=== PATIENT | female | born 1990 | race Caucasian/White ===

== ENCOUNTER 2018-01-23 17:04 | Emergency (ER) | payer MEDICAID ==
--- NOTE | 2018-01-23 18:16 | EDM.PDOC ---
ED HPI GENERAL MEDICAL PROBLEM - General Chief Complaint: Cardiovascular Problem Stated Complaint: NOT FEELING WELL, LOW BLOOD PRESURE Time Seen by Provider: 01/23/18 17:46 Source of Information: Reports: Patient History Limitations: Reports: No Limitations - History of Present Illness INITIAL COMMENTS - FREE TEXT/NARRATIVE: 27 yo female presents following dizziness and hypotensive incident. Vomiting and diarrhea yesterday, she is feeling much better today. She was in [employer] and became light headed, she measured her blood pressure at the store and it was 90s/70s per pt. She ate a cookie in the lobby and is feeling much better now. 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 Denies: Fever, Chills Respiratory: Denies: Shortness of Breath, Wheezing Cardiovascular: Reports: Lightheadedness. Denies: Chest Pain GI/Abdominal: Denies: Abdominal Pain Skin: Denies: Rash ED EXAM, GENERAL - Physical Exam Exam: See Below Exam Limited By: No Limitations General Appearance: Alert, WD/WN, No Apparent Distress Head: Atraumatic, Normocephalic Respiratory/Chest: No Respiratory Distress, Lungs Clear, Normal Breath Sounds. No: Crackles, Rhonchi, Wheezing Cardiovascular: Regular Rate, Rhythm, No Murmur GI/Abdominal: Soft, Non-Tender Neurological: Alert, Oriented, CN II-XII Intact, Normal Cognition, Normal Gait Psychiatric: Normal Affect, Normal Mood Skin Exam: Warm, Dry, Intact Course - Vital Signs Last Recorded V/S: Last Vital Signs Temp 36.6 C 01/23/18 17:45 Pulse 84 01/23/18 17:45 Resp 18 01/23/18 17:45 BP 140/77 01/23/18 17:45 Pulse Ox 98 01/23/18 17:45 - Orders/Labs/Meds Labs: Laboratory Tests 01/23/18 01/23/18 Range/Units 18:18 18:18 WBC 7.4 (4.5-11.0) K/uL RBC 4.38 (3.30-5.50) M/uL Hgb 11.9 L (12.0-15.0) g/dL Hct 36.7 (36.0-48.0) % MCV 84 (80-98) fL MCH 27 (27-31) pg MCHC 32 (32-36) % Plt Count 333 (150-400) K/uL Neut % (Auto) 61 (36-66) % Lymph % (Auto) 26 (24-44) % [place] % (Auto) 10 H (2-6) % Eos % (Auto) 3 (2-4) % Baso % (Auto) 0 (0-1) % Sodium 142 (140-148) mmol/L Potassium 3.4 L (3.6-5.2) mmol/L Chloride 104 (100-108) mmol/L Carbon Dioxide 27 (21-32) mmol/L Anion Gap 14.4 H (5.0-14.0) mmol/L BUN 9 (7-18) mg/dL Creatinine 0.9 (0.6-1.0) mg/dL Est Cr Clr Drug Dosing 86.34 mL/min Estimated GFR (MDRD) > 60 (>60) Glucose 91 (74-106) mg/dL Calcium 8.1 L (8.5-10.1) mg/dL - Re-Assessments/Exams Free Text/Narrative Re-Assessment/Exam: 01/23/18 18:46 oral rehydrated. symptoms resolved. encouraged fluid intake and potassium rich foods Departure - Departure Time of Disposition: 18:47 Disposition: Home, Self-Care 01 Condition: Good Clinical Impression: Dehydration, Hypokalemia Instructions: Dehydration, Adult Referrals: PCP,None [Primary Care Provider] - Forms: ED Department Discharge Additional Instructions: fluid intake with goal of 1.5-2 liters per day eat potassium rich foods
== END 2018-01-23 19:05 | disposition home or self-care (01) ==
LOC: JP.ED 17:04
DX: E87.6 Hypokalemia (principal); E86.0 Dehydration; Z79.82 Long term (current) use of aspirin
CPT/HCPCS: 36415; 80048; 85025; 99284

== ENCOUNTER 2018-04-27 19:34 | Emergency (ER) | payer MEDICAID ==
--- NOTE | 2018-04-27 20:37 | EDM.PDOC ---
ED HPI GENERAL MEDICAL PROBLEM - General Chief Complaint: Abdominal Pain Time Seen by Provider: 04/27/18 19:55 Source of Information: Reports: Patient, Family (Mother) History Limitations: Reports: No Limitations - History of Present Illness INITIAL COMMENTS - FREE TEXT/NARRATIVE: left upper abdomen, lower left rib pain; this is a 27 year old female present to ER with Mom, reports abdominal pain all day. The pain is on the left upper abdomen, just below the ribs. increased pain with breathing denies any lifting or injuries. Concerns of , last menses 03/24/2018. AB1, had a recent positive test. recently moved to [place] from [place], [place]. works at [employer]. Onset: Today Duration: Hour(s):, Constant Location: Reports: Chest (left lower chest), Abdomen (left upper abdomen) Quality: Reports: Ache, Sharp Improves with: Reports: None Worsens with: Reports: Breathing Associated Symptoms: Reports: No Other Symptoms left abd Pain Score (Numeric/FACES): 7 - Related Data Allergies Allergy/AdvReac Type Severity Reaction Status Date / Time No Known Allergies Allergy Verified 04/27/18 19:58 Home Meds: Home Meds Aspirin 81 mg PO DAILY 01/23/18 [History] Past Medical History - Past Health History Medical/Surgical History: Denies Medical/Surgical History HEENT History: Reports: Allergic Rhinitis, Impaired Vision Cardiovascular History: Reports: Hypertension Respiratory History: Reports: Asthma, Sleep Apnea Gastrointestinal History: Reports: GERD, Other (See Below) Other Gastrointestinal History: 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 Genitourinary History: Reports: UTI, Recurrent 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: Neurological History: Reports: CVA, Other (See Below) Other Neuro History: stroke 2016 Psychiatric History: Reports: Anxiety, Depression, Psych Hospitalization(s), Suicide Attempt, Other (See Below) Other Psychiatric History: borderline personality disorder Endocrine/Metabolic History: Reports: Obesity/BMI 30+ Hematologic History: Reports: Anticoagulation Therapy Dermatologic History: Reports: Eczema, Psoriasis - Infectious Disease History Infectious Disease History: Reports: Chicken Pox, Pertussis (Whooping Cough) Social & Family History - Tobacco Use Smoking Status *Q: Never Smoker - Caffeine Use Caffeine Use: Reports: None - Recreational Drug Use Recreational Drug Use: No - Living Situation & Occupation Living situation: Reports: Single (has 3 children age 10 yr, 9 yr, and 2 yr. The two older children live with thier Paternal Grandparents. 2 yr lives with Lissette.), with Family Occupation: Employed ED ROS GENERAL - Review of Systems Review Of Systems: See Below Constitutional: Reports: Other (pain) HEENT: Reports: No Symptoms Respiratory: Reports: Pleuritic Chest Pain Cardiovascular: Reports: No Symptoms Endocrine: Reports: No Symptoms GI/Abdominal: Reports: Abdominal Pain (left upper doesnot radiate to other quadrants.) : Reports: Frequency, Other (last menses 03/24/18) Musculoskeletal: Reports: Muscle Pain (left lower ribs) Skin: Reports: No Symptoms Neurological: Reports: No Symptoms Psychiatric: Reports: No Symptoms Hematologic/Lymphatic: Reports: No Symptoms Immunologic: Reports: No Symptoms ED EXAM, GENERAL - Physical Exam Exam: See Below Exam Limited By: No Limitations General Appearance: Alert, WD/WN, No Apparent Distress Eye Exam: Bilateral Eye: Normal Inspection Ears: Normal External Exam, Normal Canal, Hearing Grossly Normal, Normal TMs Ear Exam: Bilateral Ear: Auricle Normal, Canal Normal, TM normal Nose: Normal Inspection, Normal Mucosa, No Blood Throat/Mouth: Normal Inspection, Normal Lips, Normal Teeth, Normal Gums, Normal Oropharynx, Normal Voice, No Airway Compromise Head: Atraumatic, Normocephalic Neck: Normal Inspection, Supple, Non-Tender, Full Range of Motion Respiratory/Chest: No Respiratory Distress, Lungs Clear, Normal Breath Sounds, No Accessory Muscle Use, Other (pain with palpation of the left lower ribs. ) Cardiovascular: Normal Peripheral Pulses, Regular Rate, Rhythm, No Edema, No Murmur Peripheral Pulses: 2+: Radial (L), Radial (R), Dorsalis Pedis (L), Dorsalis Pedis (R) GI/Abdominal: Normal Bowel Sounds, Soft, Other (mild tenderness to left upper abdomen.) (Female) Exam: Deferred Rectal (Female) Exam: Deferred Back Exam: Normal Inspection, Full Range of Motion Extremities: Normal Inspection, Normal Range of Motion, Non-Tender, No Pedal Edema, Normal Capillary Refill Neurological: No Motor/Sensory Deficits Psychiatric: Normal Affect, Normal Mood Skin Exam: Warm, Dry, Intact, Normal Color, No Rash Lymphatic: No Adenopathy Course - Vital Signs Last Recorded V/S: Last Vital Signs Temp 36.6 C 04/27/18 20:01 Pulse 83 04/27/18 20:01 Resp 16 04/27/18 20:01 BP 143/68 H 04/27/18 20:01 Pulse Ox 97 04/27/18 20:01 - Orders/Labs/Meds Orders: Active Orders 24 hr Category Date Time Status HCG QUALITATIVE,URINE [URCHEM] Stat Lab 04/27/18 20:39 Ordered UA W/MICROSCOPIC [URIN] Urgent Lab 04/27/18 20:39 Ordered Labs: Laboratory Tests 04/27/18 04/27/18 04/27/18 Range/Units 20:39 20:39 20:44 WBC (4.5-11.0) K/uL RBC (3.30-5.50) M/uL Hgb (12.0-15.0) g/dL Hct (36.0-48.0) % MCV (80-98) fL MCH (27-31) pg MCHC (32-36) % Plt Count (150-400) K/uL Neut % (Auto) (36-66) % Lymph % (Auto) (24-44) % [place] % (Auto) (2-6) % Eos % (Auto) (2-4) % Baso % (Auto) (0-1) % Sodium (140-148) mmol/L Potassium (3.6-5.2) mmol/L Chloride (100-108) mmol/L Carbon Dioxide (21-32) mmol/L Anion Gap (5.0-14.0) mmol/L BUN (7-18) mg/dL Creatinine (0.6-1.0) mg/dL Est Cr Clr Drug Dosing mL/min Estimated GFR (MDRD) (>60) Glucose (74-106) mg/dL Calcium (8.5-10.1) mg/dL Total Bilirubin (0.2-1.0) mg/dL AST (15-37) U/L ALT (12-78) U/L Alkaline Phosphatase (46-116) U/L Total Protein (6.4-8.2) g/dL Albumin (3.4-5.0) g/dL Globulin (2.3-3.5) g/dL Albumin/Globulin Ratio (1.2-2.2) HCG, Quant 2543 H (0-6) mIU/mL Urine Color Yellow Urine Appearance Cloudy Urine pH 7.0 (4.5-8.0) Ur Specific [place] 1.010 (1.008-1.030) Urine Protein Negative (NEGATIVE) mg/dL Urine Glucose (UA) Normal (NEGATIVE) mg/dL Urine Ketones Negative (NEGATIVE) mg/dL Urine Occult Blood Negative (NEGATIVE) Urine Nitrite Negative (NEGATIVE) Urine Bilirubin Negative (NEGATIVE) Urine Urobilinogen Normal (NORMAL) mg/dL Ur Leukocyte Esterase Negative (NEGATIVE) Urine RBC 0-5 (0-5) Urine WBC 5-10 H (0-5) Ur Epithelial Cells Moderate Amorphous Sediment Few Urine Bacteria Rare Urine Mucus Few Urine HCG, Qual Positive H 04/27/18 04/27/18 Range/Units 20:44 20:44 WBC 9.7 (4.5-11.0) K/uL RBC 4.41 (3.30-5.50) M/uL Hgb 12.3 (12.0-15.0) g/dL Hct 37.5 (36.0-48.0) % MCV 85 (80-98) fL MCH 28 (27-31) pg MCHC 33 (32-36) % Plt Count 333 (150-400) K/uL Neut % (Auto) 70 H (36-66) % Lymph % (Auto) 21 L (24-44) % [place] % (Auto) 6 (2-6) % Eos % (Auto) 3 (2-4) % Baso % (Auto) 0 (0-1) % Sodium 137 L (140-148) mmol/L Potassium 3.6 (3.6-5.2) mmol/L Chloride 102 (100-108) mmol/L Carbon Dioxide 27 (21-32) mmol/L Anion Gap 11.6 (5.0-14.0) mmol/L BUN 14 D (7-18) mg/dL Creatinine 0.8 (0.6-1.0) mg/dL Est Cr Clr Drug Dosing 97.13 mL/min Estimated GFR (MDRD) > 60 (>60) Glucose 87 (74-106) mg/dL Calcium 8.6 (8.5-10.1) mg/dL Total Bilirubin 0.2 (0.2-1.0) mg/dL AST 20 (15-37) U/L ALT 55 (12-78) U/L Alkaline Phosphatase 81 (46-116) U/L Total Protein 7.1 (6.4-8.2) g/dL Albumin 3.2 L (3.4-5.0) g/dL Globulin 3.9 H (2.3-3.5) g/dL Albumin/Globulin Ratio 0.8 L (1.2-2.2) HCG, Quant (0-6) mIU/mL Urine Color Urine Appearance Urine pH (4.5-8.0) Ur Specific [place] (1.008-1.030) Urine Protein (NEGATIVE) mg/dL Urine Glucose (UA) (NEGATIVE) mg/dL Urine Ketones (NEGATIVE) mg/dL Urine Occult Blood (NEGATIVE) Urine Nitrite (NEGATIVE) Urine Bilirubin (NEGATIVE) Urine Urobilinogen (NORMAL) mg/dL Ur Leukocyte Esterase (NEGATIVE) Urine RBC (0-5) Urine WBC (0-5) Ur Epithelial Cells Amorphous Sediment Urine Bacteria Urine Mucus Urine HCG, Qual - Re-Assessments/Exams Free Text/Narrative Re-Assessment/Exam: 04/27/18 20:46 -discussed with Lissette symptoms of left lower rib and upper abdomen pain most likely related to pleurisy. -will do labs to rule out bacterial infection, , or diabetes Lissette and her Mother agree with plan of care. 04/27/18 21:48 labs negative for acute process, positive test. discussed with Lissette and her Mom. advise to establish care. Departure - Departure Time of Disposition: 21:49 Disposition: Home, Self-Care 01 Condition: Good Clinical Impression: Pleurisy, confirmed by positive blood test - Discharge Information *PRESCRIPTION DRUG MONITORING PROGRAM REVIEWED*: No *COPY OF PRESCRIPTION DRUG MONITORING REPORT IN PATIENT AMELIA: No Instructions: Care, Pleurisy, [id number] Referrals: PCP,None [Primary Care Provider] - Forms: ED Department Discharge Care Plan Goals: Pleurisy -Robitussin AC 5 ml every 4 hours as needed for pain -may use tylenol every 4 hours as needed for pain Follow up with Primary Care for recheck in 2 weeks. return to Clinic or ER if has increased pain, shortness of breath or has concerns. , confirmed by blood and urine test -make appointment for Care -eat healthy, rest, drink 8 to 10 glasses of water per day -return to ER for any vaginal bleeding, cramping, pain, fever or any concerns. - Problem List & Annotations (1) Pleurisy SNOMED Code(s): 597185406 Code(s): R09.1 - PLEURISY Status: Acute Priority: High Current Visit: Yes (2) confirmed by positive blood test SNOMED Code(s): 150886072 Code(s): Z32.01 - ENCOUNTER FOR TEST, RESULT POSITIVE Status: Acute Priority: High Current Visit: Yes - Problem List Review Problem List Initiated/Reviewed/Updated: Yes - My Orders Last 24 Hours: My Active Orders 04/27/18 20:39 HCG QUALITATIVE,URINE [URCHEM] Stat UA W/MICROSCOPIC [URIN] Urgent - Assessment/Plan Last 24 Hours: My Active Orders 04/27/18 20:39 HCG QUALITATIVE,URINE [URCHEM] Stat UA W/MICROSCOPIC [URIN] Urgent Plan: Pleurisy -Robitussin AC 5 ml every 4 hours as needed for pain -may use tylenol every 4 hours as needed for pain Follow up with Primary Care for recheck in 2 weeks. return to Clinic or ER if has increased pain, shortness of breath or has concerns. , confirmed by blood and urine test -make appointment for Care -eat healthy, rest, drink 8 to 10 glasses of water per day -return to ER for any vaginal bleeding, cramping, pain, fever or any concerns.
== END 2018-04-27 22:06 | disposition home or self-care (01) ==
LOC: JP.ED 19:34
DX: O99.89 Other specified diseases and conditions complicating pregnancy, childbirth and the puerperium (principal); R09.1 Pleurisy; Z79.82 Long term (current) use of aspirin; Z3A.01 Less than 8 weeks gestation of pregnancy
CPT/HCPCS: 36415; 80053; 81001; 81025; 84702; 85025; 99284

== ENCOUNTER 2018-12-20 06:41 | Inpatient (IN) | payer MEDICAID ==
[2018-12-20] MEDS ORDERED: Lactated Ringers 1,000 ML IV ONE (07:28)
[2018-12-20] MEDS ORDERED: Sodium Chloride 0.9% 10 ML Syringe FLUSH PRN (07:33)
[2018-12-20] MEDS ORDERED: Acetaminophen 325 MG Tab PO PRN (07:33)
[2018-12-20] MEDS ORDERED: Ondansetron 4 MG/2 ML SDV IV PRN (07:33)
--- NOTE | 2018-12-20 07:55 | PCM.LDHP ---
L&D History of Present Illness - General Date of Service: 12/20/18 Admit Problem/Dx: Patient Status Order with Admit Dx/Problem 12/20/18 07:28 Patient Status [ADT] Routine Admission Diagnosis/Problem Admission Diagnosis/Problem - Related Data Allergies/Adverse Reactions: Allergies Allergy/AdvReac Type Severity Reaction Status Date / Time No Known Allergies Allergy Verified 12/13/18 21:34 Home Medications: Home Meds Aspirin 81 mg PO DAILY 01/23/18 [History] Past Medical History - Past Health History Medical/Surgical History: Denies Medical/Surgical History HEENT History: Reports: Allergic Rhinitis, Impaired Vision Cardiovascular History: Reports: Hypertension Respiratory History: Reports: Asthma, Sleep Apnea Gastrointestinal History: Reports: GERD, Other (See Below) Other Gastrointestinal History: 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: Neurological History: Reports: CVA, Other (See Below) Other Neuro History: stroke 2016 Psychiatric History: Reports: Anxiety, Depression, Psych Hospitalization(s), Suicide Attempt, Other (See Below) Other Psychiatric History: borderline personality disorder Endocrine/Metabolic History: Reports: Obesity/BMI 30+ Hematologic History: Reports: Anticoagulation Therapy Dermatologic History: Reports: Eczema, Psoriasis - Infectious Disease History Infectious Disease History: Reports: Chicken Pox, Hepatitis C Social & Family History - Caffeine Use Caffeine Use: Reports: Soda Other Caffeine Use: not very frequently - Living Situation & Occupation Living situation: Reports: Single (has 3 children age 10 yr, 9 yr, and 2 yr. The two older children live with araceli Paternal Grandparents. 2 yr lives with [employer]), with Family Occupation: Employed [employer] Review of Systems - Review of Systems: Review Of Systems: See Below General: Reports: No Symptoms HEENT: Reports: No Symptoms Pulmonary: Reports: No Symptoms Cardiovascular: Reports: No Symptoms Gastrointestinal: Reports: No Symptoms Genitourinary: Reports: No Symptoms Musculoskeletal: Reports: No Symptoms Skin: Reports: No Symptoms Psychiatric: Reports: No Symptoms Neurological: Reports: No Symptoms Hematologic/Lymphatic: Reports: No Symptoms Immunologic: Reports: No Symptoms L&D Exam - Exam Exam: See Below - Vital Signs Weight: 120.656 kg - OB Specific Contraction Intensity: Mild Movement: Active Heart Tones: Present Heart Rate (FHR) Variability: Moderate (6-25 bmp) Presentation: Vertex - Kent Score Kent Score Cervix Position: Anterior Kent Score Consistency: Soft [place] Score Effacement: 31-50% Kent Score Dilation: 3-4 cm Kent Score Infant's Station: -2 Kent Score Total: 8 - Exam General: Alert, Oriented, Cooperative HEENT: PERRLA, Conjunctiva Clear, EACs Clear, EOMI, Hearing Intact, Mucosa Moist & [place], Nares Patent, Normal Nasal Septum, Posterior Pharynx Clear, Pupils Equal, Pupils Reactive, TMs Clear Neck: Supple, Trachea Midline Lungs: Clear to Auscultation, Normal Respiratory Effort Cardiovascular: Regular Rate, Regular Rhythm GI/Abdominal Exam: Normal Bowel Sounds, Soft, Non-Tender, No Organomegaly, No Distention, No Abnormal Bruit, No Mass, Pelvis Stable Rectal Exam: Normal Exam, Normal Rectal Tone Genitourinary: Normal external exam, Normal bimanual exam, Normal speculum exam Back Exam: Normal Inspection, Full Range of Motion Extremities: Normal Inspection, Normal Range of Motion, Non-Tender, No Pedal Edema, Normal Capillary Refill Skin: Warm, Dry, Intact Neurological: Cranial Nerves Intact, Reflexes Equal Bilateral Psychiatric: Alert, Normal Affect, Normal Mood - Patient Data Lab Results Last 24 hrs: Laboratory Results - last 24 hr 12/20/18 Range/Units 07:09 WBC 9.9 (4.5-11.0) K/uL RBC 3.77 (3.30-5.50) M/uL Hgb 9.6 L (12.0-15.0) g/dL Hct 31.0 L (36.0-48.0) % MCV 82 (80-98) fL MCH 26 L (27-31) pg MCHC 31 L (32-36) % Plt Count 393 (150-400) K/uL Result Diagrams: 12/20/18 07:09 - Problem List (1) Encounter for induction of labor SNOMED Code(s): 559603640 ICD Code: Z34.90 - ENCNTR FOR SUPRVSN OF NORMAL , UNSP, UNSP TRIMESTER Status: Acute Current Visit: Yes (2) High-risk in third trimester SNOMED Code(s): 74460730, 58293852 ICD Code: O09.93 - SUPERVISION OF HIGH RISK , UNSP, THIRD TRIMESTER Status: Acute Priority: High Current Visit: Yes (3) SNOMED Code(s): 98394791 ICD Code: Z34.90 - ENCNTR FOR SUPRVSN OF NORMAL , UNSP, UNSP TRIMESTER Status: Acute Priority: High Current Visit: Yes (4) History of stroke SNOMED Code(s): 315880397 ICD Code: Z86.73 - PRSNL HX OF TIA (TIA), AND CEREB INFRC W/O RESID DEFICITS Status: Acute Priority: High Current Visit: Yes (5) Anemia affecting in third trimester SNOMED Code(s): 29664303, 41777714 ICD Code: O99.013 - ANEMIA COMPLICATING , THIRD TRIMESTER Status: Acute Current Visit: Yes (6) Maternal hepatitis B surface antigen positive, currently SNOMED Code(s): 963585513 ICD Code: O98.419 - VIRAL HEPATITIS COMPLICATING , UNSP TRIMESTER; B18.1 - CHRONIC VIRAL HEPATITIS B WITHOUT DELTA-AGENT Status: Acute Current Visit: Yes Problem List Initiated/Reviewed/Updated: Yes Orders Last 24hrs: Active Orders 24 hr Category Date Time Status Patient Status [ADT] Routine ADT 12/20/18 07:28 Active Antiembolic Devices [RC] .Routine Care 12/20/18 07:45 Active Communication Order [RC] ASDIRECTED Care 12/20/18 07:28 Active Communication Order [RC] Per Unit Routine Care 12/20/18 07:28 Active Heart Tones [RC] PER UNIT ROUTINE Care 12/20/18 07:28 Active Non Stress Test [RC] Click to Edit Care 12/20/18 07:28 Active Insert Urinary Catheter [OM.PC] ASDIRECTED Care 12/20/18 07:30 Ordered Local Anesthetic Infusion Pump [RC] ASDIRECTED Care 12/20/18 07:28 Active Notify Provider Vital Signs [RC] PRN Care 12/20/18 07:33 Active Notify Provider [RC] PRN Care 12/20/18 07:28 Active PCEA Epidural [RC] ASDIRECTED Care 12/20/18 07:28 Active PCEA Epidural [RC] ASDIRECTED Care 12/20/18 07:41 Active Up ad Araseli [RC] ASDIRECTED Care 12/20/18 07:33 Active Urinary Catheter Assessment [RC] ASDIRECTED Care 12/20/18 07:41 Active VTE/DVT Education [RC] Click to Edit Care 12/20/18 07:45 Active Verify Patient Consent Obtain [RC] ASDIRECTED Care 12/20/18 07:28 Active Vital Signs [RC] PER UNIT ROUTINE Care 12/20/18 07:28 Active Regular Diet [DIET] Diet 12/20/18 Breakfast Active DRUG SCREEN, URINE [URCHEM] Routine Lab 12/20/18 07:08 Ordered TYPE AND SCREEN [BBK] Routine Lab 12/20/18 07:33 Ordered UA W/MICROSCOPIC [URIN] Routine Lab 12/20/18 07:08 Ordered Acetaminophen [Tylenol] Med 12/20/18 07:33 Ordered 650 mg PO Q4H PRN Lactated Ringers [Ringers, Lactated] 1,000 ml Med 12/20/18 07:28 Ordered IV ONETIME Ondansetron [Zofran] Med 12/20/18 07:33 Ordered 4 mg IV Q4H PRN Oxytocin/Normal Saline [Pitocin in NS 20 Units/1,000 ML Med 12/20/18 08:00 Ordered ] 20 unit in 1,000 ml IV TITRATE Sodium Chloride 0.9% [Saline Flush] Med 12/20/18 07:33 Ordered 10 ml FLUSH ASDIRECTED PRN DVT/VTE Prophylaxis Reflex [OM.PC] Routine Oth 12/20/18 07:33 Ordered Epidural Catheter Management [OM.PC] Urgent Oth 12/20/18 07:28 Ordered Saline Lock Insert [OM.PC] Routine Oth 12/20/18 07:28 Ordered Resuscitation Status Routine Resus Stat 12/20/18 07:28 Ordered Medication Orders Acetaminophen (Tylenol) 650 mg PO Q4H PRN PRN Reason: Pain (Mild 1-3) and fever Lactated Ringer's (Ringers, Lactated) 1,000 mls @ 999 mls/hr IV ONETIME ONE Stop: 12/20/18 08:28 Oxytocin/Sodium Chloride (Pitocin In Ns 20 Units/1,000 Ml) 20 unit in 1,000 mls @ 6 mls/hr IV TITRATE JOSE RAMON; Protocol Ondansetron HCl (Zofran) 4 mg IV Q4H PRN PRN Reason: Nausea/Vomiting Sodium Chloride (Saline Flush) 10 ml FLUSH ASDIRECTED PRN PRN Reason: Keep Vein Open Assessment/Plan Comment:: 12/20/2018 28 yo here at 39 0/7 gestational weeks for a medical induction of labor. She had a consult with [facility] and they recommended induction of labor at 39 0 /7 weeks gestation if no labor by then. History of stroke High risk SVE-4/50/-2 [place]-8 Labs-A positive, Hep B neg, HIV neg, Hep C positive-RNA negative, RPR nonreactive, GBS negative, Hgb-9.6 Plan- Monitor for active labor Monitor FHTS Start pitocin per protocol Pain control per patient request Will type and screen with hgb-9.6 SCDs when in bed Plan and anticipate a vaginal delivery
[2018-12-20] MEDS: Lactated Ringers 1,000 ML IV SCH ×2 (08:19→13:27)
[2018-12-20] MEDS ORDERED: ceFAZolin 2 GM in Premix Bag 1 BAG IV ONE (12:15)
--- NOTE | 2018-12-20 12:18 | PCM.PNLD ---
Labor Progress Note - VS & Meds Vital Signs: Last Vital Signs Temp 36.4 C 12/20/18 11:10 Pulse 96 12/20/18 11:10 Resp 20 12/20/18 11:10 BP 115/64 12/20/18 11:10 Pulse Ox Active Medications: Current Medications Acetaminophen (Tylenol) 650 mg PO Q4H PRN PRN Reason: Pain (Mild 1-3) and fever Oxytocin/Sodium Chloride (Pitocin In Ns 20 Units/1,000 Ml) 20 unit in 1,000 mls @ 6 mls/hr IV TITRATE JOSE RAMON; Protocol Last Titration: 12/20/18 10:36 Dose: 9 munits/min, 27 mls/hr Lactated Ringer's (Ringers, Lactated) 1,000 mls @ 0 mls/hr IV ASDIRECTED JOSE RAMON Last Infusion: 12/20/18 12:08 Dose: 999 mls/hr Ondansetron HCl (Zofran) 4 mg IV Q4H PRN PRN Reason: Nausea/Vomiting Sodium Chloride (Saline Flush) 10 ml FLUSH ASDIRECTED PRN PRN Reason: Keep Vein Open Discontinued Medications Lactated Ringer's (Ringers, Lactated) 1,000 mls @ 999 mls/hr IV ONETIME ONE Stop: 12/20/18 08:28 - Uterine Contractions Uterine Monitoring Mode: External [place] Contraction Frequency (min): 3.5-4 Contraction Duration (sec): 80-110 Contraction Intensity: Mild to Moderate Uterine Resting Tone: Soft - Monitoring Monitor Mode: External Ultrasound Heart Rate (FHR) Variability: Moderate (6-25 bmp) - Vaginal Exam Dilation (cm): 4-5 Effacement (Percent): 80 Station: -1 Cervical Position: Anterior Sterile Vaginal Exam Performed By: Liz Jones - Labor Progress (Free Text) Labor Progress: 12/20/2018 Patient progressing nicely SVE-4-5/80/-1 FHTs category one Patient requesting an epidural Plan- Epidural for pain control Continue pitocin per protocol Ancef for UTI Continue to monitor labor Continue to monitor FHTs Plan and anticipate a vaginal delivery
[2018-12-20] MEDS ORDERED: Ropivacaine 100 ML ONE (12:32)
[2018-12-20] MEDS ORDERED: ePHEDrine 50 MG/ML SDV ONE (12:37)
[2018-12-20] MEDS ORDERED: Lanolin 100% Cream 40 GM Tube TOP PRN (15:09)
[2018-12-20] MEDS ORDERED: Ibuprofen 200 MG Tab, 24 Tab Bulk Bottle PO PRN (15:09)
[2018-12-20] MEDS ORDERED: Benzocaine 20% Top Spray 56 GM Bottle TOP PRN (15:09)
[2018-12-20] MEDS ORDERED: Witch Hazel Medicated Pads 100/Jar TOP PRN (15:09)
[2018-12-20] MEDS ORDERED: Acetaminophen 325 MG Tab, 50 Tab Bulk Bottle PO PRN (15:09)
--- NOTE | 2018-12-20 15:45 | PCM.DEL ---
L & D Note - General Info Date of Service: 12/20/18 Mother's Due Date: 12/27/18 - Delivery Note Labor: Induced by Oxytocin Delivery Outcome: Livebirth Delivery Method: Spontaneous Vaginal Delivery-Single Infant Delivery Mode: Spontaneous Presentation: Left Occiput Anterior (JOSE ANGEL) Nuchal Cord: None Anesthesia Type: Epidural Amniotic Fluid Description: Clear Episiotomy Type: None Laceration: None Placenta: Intact, Spontaneous Estimated Blood Loss: 300 : Bulb Syringe, Stimulated, Warmed, [place] Used Score 1 min: 9 Score 5 min: 9 Second Stage Interventions: Reports: Encouragement Given, Pushing Ineffectively , Pushing, McRobert's Position, Other (see below) (suprapubic pressure by nurse , nurses assisted with legs) Delivery Comments (Free Text/Narrative):: 12/20/2018 28 yo at 39 0/7 gestational weeks delivered a viable male infant at 1454 on 12/20/2018 in the JOSE ANGEL position. Patient was struggling with pushing effectively and in the end had ineffective pushing with a fat dystocia. With suprapubic and Marianela the baby was easily delivered and placed on prewarmed blankets on mother's abdomen. Infant began to cry vigorously and pink in color. APGARS-9/9, weight-8lbs, length-21 inches. Infant was bulb suctioned, dried, stimulated and warmed. Placenta expressed spontaneously and intact. EBL -300ml. Three vessel cord. No lacerations noted of the vagina, perineum, cervix , or rectum. Small abrasion not bleeding noted at the lower perineum, not needing repair. Infant now skin to skin with mother and both stable in the labor and delivery room. Stages of labor- [id number] - General Info Date of Service: 12/20/18 Functional Status: Reports: Pain Controlled - Review of Systems General: Reports: No Symptoms HEENT: Reports: No Symptoms Pulmonary: Reports: No Symptoms Cardiovascular: Reports: No Symptoms Gastrointestinal: Reports: No Symptoms Genitourinary: Reports: No Symptoms Musculoskeletal: Reports: No Symptoms Skin: Reports: No Symptoms Neurological: Reports: No Symptoms Psychiatric: Reports: No Symptoms - Patient Data Vitals - Most Recent: Last Vital Signs Temp 36.4 C 12/20/18 11:10 Pulse 113 H 12/20/18 13:20 Resp 20 12/20/18 13:20 BP 103/45 L 12/20/18 13:20 Pulse Ox 87 L 12/20/18 13:20 Weight - Most Recent: 120.656 kg I&O - Last 24 Hours: Intake & Output 12/20/18 12/20/18 12/20/18 06:59 14:59 22:59 Output Total 200 Balance -200 Lab Results Last 24 Hours: Laboratory Results - last 24 hr 12/20/18 12/20/18 12/20/18 Range/Units 07:08 07:08 07:09 WBC 9.9 (4.5-11.0) K/uL RBC 3.77 (3.30-5.50) M/uL Hgb 9.6 L (12.0-15.0) g/dL Hct 31.0 L (36.0-48.0) % MCV 82 (80-98) fL MCH 26 L (27-31) pg MCHC 31 L (32-36) % Plt Count 393 (150-400) K/uL Urine Color Yellow Urine Appearance Cloudy Urine pH 6.0 (4.5-8.0) Ur Specific [place] 1.015 (1.008-1.030) Urine Protein Trace (NEGATIVE) mg/dL Urine Glucose (UA) Normal (NEGATIVE) mg/dL Urine Ketones Negative (NEGATIVE) mg/dL Urine Occult Blood Moderate (NEGATIVE) Urine Nitrite Negative (NEGATIVE) Urine Bilirubin Negative (NEGATIVE) Urine Urobilinogen Normal (NORMAL) mg/dL Ur Leukocyte Esterase Large (NEGATIVE) Urine RBC 0-5 (0-5) Urine WBC Packed H (0-5) Ur Epithelial Cells Many Amorphous Sediment Not seen Urine Bacteria Moderate Urine Mucus Few Urine Opiates Screen Negative (NEGATIVE) Ur Oxycodone Screen Negative (NEGATIVE) Urine Methadone Screen Negative (NEGATIVE) Ur Propoxyphene Screen Negative (NEGATIVE) Ur Barbiturates Screen Negative (NEGATIVE) Ur Tricyclics Screen Negative (NEGATIVE) Ur Phencyclidine Scrn Negative (NEGATIVE) Ur Amphetamine Screen Negative (NEGATIVE) U Methamphetamines Scrn Negative (NEGATIVE) Urine MDMA Screen Negative (NEGATIVE) U Benzodiazepines Scrn Negative (NEGATIVE) U Cocaine Metab Screen Negative (NEGATIVE) U Marijuana (THC) Screen Negative (NEGATIVE) Blood Type Gel Antibody Screen 12/20/18 Range/Units 07:33 WBC (4.5-11.0) K/uL RBC (3.30-5.50) M/uL Hgb (12.0-15.0) g/dL Hct (36.0-48.0) % MCV (80-98) fL MCH (27-31) pg MCHC (32-36) % Plt Count (150-400) K/uL Urine Color Urine Appearance Urine pH (4.5-8.0) Ur Specific Enders (1.008-1.030) Urine Protein (NEGATIVE) mg/dL Urine Glucose (UA) (NEGATIVE) mg/dL Urine Ketones (NEGATIVE) mg/dL Urine Occult Blood (NEGATIVE) Urine Nitrite (NEGATIVE) Urine Bilirubin (NEGATIVE) Urine Urobilinogen (NORMAL) mg/dL Ur Leukocyte Esterase (NEGATIVE) Urine RBC (0-5) Urine WBC (0-5) Ur Epithelial Cells Amorphous Sediment Urine Bacteria Urine Mucus Urine Opiates Screen (NEGATIVE) Ur Oxycodone Screen (NEGATIVE) Urine Methadone Screen (NEGATIVE) Ur Propoxyphene Screen (NEGATIVE) Ur Barbiturates Screen (NEGATIVE) Ur Tricyclics Screen (NEGATIVE) Ur Phencyclidine Scrn (NEGATIVE) Ur Amphetamine Screen (NEGATIVE) U Methamphetamines Scrn (NEGATIVE) Urine MDMA Screen (NEGATIVE) U Benzodiazepines Scrn (NEGATIVE) U Cocaine Metab Screen (NEGATIVE) U Marijuana (THC) Screen (NEGATIVE) Blood Type A POSITIVE Gel Antibody Screen Negative Med Orders - Current: Current Medications Acetaminophen (Tylenol) 650 mg PO Q4H PRN PRN Reason: Pain (Mild 1-3) and fever Acetaminophen (Tylenol Bulk Bottle) 325 - 650 mg PO Q4H PRN PRN Reason: Pain Benzocaine (Swrw-T-Uvaiugg 20% [place]) 0 gm TOP Q4H PRN PRN Reason: Perineal Comfort Measure Emollient Ointment (Lansinoh Hpa) 0 gm TOP ASDIRECTED PRN PRN Reason: Sore Nipples Oxytocin/Sodium Chloride (Pitocin In Ns 20 Units/1,000 Ml) 20 unit in 1,000 mls @ 6 mls/hr IV TITRATE JOSE RAMON; Protocol Last Titration: 12/20/18 14:09 Dose: 13 munits/min, 39 mls/hr Lactated Ringer's (Ringers, Lactated) 1,000 mls @ 0 mls/hr IV ASDIRECTED [facility] Last Admin: 12/20/18 13:27 Dose: 100 mls/hr Ibuprofen (Motrin Bulk Bottle) 600 mg PO Q6H PRN PRN Reason: Pain Ondansetron HCl (Zofran) 4 mg IV Q4H PRN PRN Reason: Nausea/Vomiting Sodium Chloride (Saline Flush) 10 ml FLUSH ASDIRECTED PRN PRN Reason: Keep Vein Open Witstacy Ibanez (Tucks) 1 pad TOP ASDIRECTED PRN PRN Reason: Hemorrhoids Discontinued Medications Ephedrine Sulfate (Ephedrine Sulfate) Confirm Administered Dose 50 mg .ROUTE .STK-MED ONE Stop: 12/20/18 12:38 Last Admin: 12/20/18 14:50 Dose: Not Given Lactated Ringer's (Ringers, Lactated) 1,000 mls @ 999 mls/hr IV ONETIME ONE Stop: 12/20/18 08:28 Last Admin: 12/20/18 14:50 Dose: Not Given Cefazolin Sodium/Dextrose 2 gm (/ Premix) 50 mls @ 100 mls/hr IV ONETIME ONE Stop: 12/20/18 12:44 Last Admin: 12/20/18 12:23 Dose: 100 mls/hr Ropivacaine (Naropin 0.2%) Confirm Administered Dose 100 mls @ as directed .ROUTE .STK-MED ONE Stop: 12/20/18 12:33 Oxytocin/Sodium Chloride (Pitocin In Ns 20 Units/1,000 Ml) 20 unit in 1,000 mls @ 2,997 mls/hr IV ONETIME ONE; Protocol Stop: 12/20/18 15:29 - Exam General: Alert, Oriented, Cooperative HEENT: Pupils Equal, Pupils Reactive, EOMI, Mucous Membr. Moist/[place] Neck: Supple Lungs: Clear to Auscultation, Normal Respiratory Effort Cardiovascular: Regular Rate, Regular Rhythm GI/Abdominal Exam: Normal Bowel Sounds, Soft, Non-Tender, No Organomegaly, No Distention, No Abnormal Bruit, No Mass, Pelvis Stable (Female) Exam: Normal External Exam, Normal Speculum Exam, Normal Bimanual Exam, Enlarged Uterus, Vaginal Bleeding Back Exam: Normal Inspection, Full Range of Motion Extremities: Normal Inspection, Normal Range of Motion, Non-Tender, No Pedal Edema, Normal Capillary Refill Skin: Warm, Dry, Intact Neurological: No New Focal Deficit Psy/Mental Status: Alert, Normal Affect, Normal Mood - Problem List & Annotations (1) Encounter for induction of labor SNOMED Code(s): 241553589 Code(s): Z34.90 - ENCNTR FOR SUPRVSN OF NORMAL , UNSP, UNSP TRIMESTER Status: Acute Current Visit: Yes (2) High-risk in third trimester SNOMED Code(s): 56366288, 36268579 Code(s): O09.93 - SUPERVISION OF HIGH RISK , UNSP, THIRD TRIMESTER Status: Acute Priority: High Current Visit: Yes (3) SNOMED Code(s): 36499296 Code(s): Z34.90 - ENCNTR FOR SUPRVSN OF NORMAL , UNSP, UNSP TRIMESTER Status: Acute Priority: High Current Visit: Yes Qualifiers: Weeks of gestation: 39 weeks Qualified Code(s): Z3A.39 - 39 weeks gestation of (4) History of stroke SNOMED Code(s): 273236295 Code(s): Z86.73 - PRSNL HX OF TIA (TIA), AND CEREB INFRC W/O RESID DEFICITS Status: Acute Priority: High Current Visit: Yes (5) Anemia affecting in third trimester SNOMED Code(s): 31703077, 47685730 Code(s): O99.013 - ANEMIA COMPLICATING , THIRD TRIMESTER Status: Acute Current Visit: Yes (6) Maternal hepatitis B surface antigen positive, currently SNOMED Code(s): 787208118 Code(s): O98.419 - VIRAL HEPATITIS COMPLICATING , UNSP TRIMESTER; B18.1 - CHRONIC VIRAL HEPATITIS B WITHOUT DELTA-AGENT Status: Acute Current Visit: No (7) Normal vaginal delivery SNOMED Code(s): 54631228 Code(s): O80 - ENCOUNTER FOR FULL-TERM UNCOMPLICATED DELIVERY Status: Acute Current Visit: Yes (8) Obesity affecting in third trimester SNOMED Code(s): 524530308820, 213351889618 Code(s): O99.213 - OBESITY COMPLICATING , THIRD TRIMESTER Status: Acute Current Visit: Yes (9) () SNOMED Code(s): 035566545 Code(s): Z78.9 - OTHER SPECIFIED HEALTH STATUS Status: Acute Current Visit: Yes - Problem List Review Problem List Initiated/Reviewed/Updated: Yes - My Orders Last 24 Hours: My Active Orders 12/20/18 07:28 Patient Status [ADT] Routine Communication Order [RC] ASDIRECTED Communication Order [RC] Per Unit Routine Non Stress Test [RC] Click to Edit Local Anesthetic Infusion Pump [RC] ASDIRECTED Notify Provider [RC] PRN PCEA Epidural [RC] ASDIRECTED Verify Patient Consent Obtain [RC] ASDIRECTED Vital Signs [RC] PER UNIT ROUTINE Epidural Catheter Management [OM.PC] Urgent Saline Lock Insert [OM.PC] Routine Resuscitation Status Routine 12/20/18 07:30 Insert Urinary Catheter [OM.PC] ASDIRECTED 12/20/18 07:33 Notify Provider Vital Signs [RC] PRN Up ad Araseli [RC] ASDIRECTED Acetaminophen [Tylenol] 650 mg PO Q4H PRN Ondansetron [Zofran] 4 mg IV Q4H PRN Sodium Chloride 0.9% [Saline Flush] 10 ml FLUSH ASDIRECTED PRN DVT/VTE Prophylaxis Reflex [OM.PC] Routine 12/20/18 07:41 Urinary Catheter Assessment [RC] ASDIRECTED 12/20/18 07:45 Antiembolic Devices [RC] .Routine VTE/DVT Education [RC] Click to Edit 12/20/18 08:00 Oxytocin/Normal Saline [Pitocin in NS 20 Units/1,000 ML] 20 unit in 1,000 ml IV TITRATE 12/20/18 08:15 Lactated Ringers [Ringers, Lactated] 1,000 ml IV ASDIRECTED 12/20/18 12:15 Dietary Supplements [RC] BIDMEALS 12/20/18 15:09 Patient Status [ADT] Routine Vital Signs [RC] PFP Consult to Home Health [CONS] Routine Acetaminophen [Tylenol Bulk Bottle] 325 - 650 mg PO Q4H PRN Benzocaine [Ablz-F-Tzydiev 20% [place]] See Dose Instructions TOP Q4H PRN Ibuprofen [Motrin Bulk Bottle] 600 mg PO Q6H PRN Lanolin [Lansinoh HPA] 0 gm TOP ASDIRECTED PRN Witch Marcelle [Tucks] 1 pad TOP ASDIRECTED PRN Assess Uterine Involution [WOMSER] Per Unit Routine 12/20/18 15:11 Ice Therapy [OM.PC] Per Unit Routine Perineal Care [OM.PC] Per Unit Routine 12/20/18 15:40 CULTURE URINE [RM] Routine 12/20/18 Breakfast Regular Diet [DIET] 12/21/18 06:00 CBC WITH AUTO DIFF [HEME] Routine - Assessment Assessment:: 12/20/2018 28 yo G8 now P4 delivered a viable male without complications Hep C positive, RNA negative Anemia in History of stroke - Plan Plan:: 12/20/2018 28 yo here at 39 0/7 gestational weeks for a medical induction of labor. She had a consult with [facility] and they recommended induction of labor at 39 0 /7 weeks gestation if no labor by then. History of stroke High risk SVE-4/50/-2 [place]-8 Labs-A positive, Hep B neg, HIV neg, Hep C positive-RNA negative, RPR nonreactive, GBS negative, Hgb-9.6 Plan- Monitor for active labor Monitor FHTS Start pitocin per protocol Pain control per patient request Will type and screen with hgb-9.6 SCDs when in bed Plan and anticipate a vaginal delivery 12/20/2018 Routine cares Encourage and support Encourage ambulation and SCD wearing when in bed Plan discharge at 24-48 hours of age
--- NOTE | 2018-12-20 23:24 | ANES ---
DATE OF SERVICE: 12/20/2018 PROCEDURE REPORT INDICATIONS: Ms. Harrell is a 28-year-old, who I was referred to come and evaluate for a labor epidural for Liz Foresman. She is a multip, approximately 4 cm in an active labor. The risks and benefits of the procedure were explained to the patient and she wished to proceed with a labor epidural. TECHNIQUE: She was placed in a sitting position. Her back was prepped x3 with Betadine and 1% lidocaine skin local was used. The epidural was placed at L3-4 using a 17-gauge Tuohy needle in loss of resistance technique. The epidural had very good feel throughout and the epidural space was easily identified. There was negative CSF, negative blood, and negative paresthesias. Therefore, a catheter was threaded to 15 cm at the skin. There was negative CSF, negative blood, negative paresthesias noted with the catheter, therefore, the catheter was then secured with Tegaderm and tape and the patient was placed in a supine position. After a negative test dose of 3 mL of 1.5% lidocaine with epinephrine was given, a bolus of 0.2% ropivacaine of 12 mL was given. Her vital signs remained stable after the bolus and her pain was diminished. Therefore, 0.2% ropivacaine drip was started at 12 mL/h. Her vital signs remained stable throughout the procedure and the nurse was with me for the entire procedure. There were no anesthesia complications noted and we will continue to monitor her throughout her Labor and Delivery stay. Jayy Davies CRNA /[id number]
[2018-12-21] MEDS ORDERED: Docusate Sodium 100 MG Cap PO PRN (07:50)
--- NOTE | 2018-12-21 07:55 | PCM.PNPP ---
- General Info Date of Service: 12/21/18 Functional Status: Reports: Pain Controlled - Review of Systems General: Reports: No Symptoms HEENT: Reports: No Symptoms Pulmonary: Reports: No Symptoms Cardiovascular: Reports: No Symptoms Gastrointestinal: Reports: No Symptoms Genitourinary: Reports: No Symptoms Musculoskeletal: Reports: No Symptoms Skin: Reports: No Symptoms Neurological: Reports: No Symptoms Psychiatric: Reports: No Symptoms - General Info Date of Service: 12/21/18 - Patient Data Vital Signs - Most Recent: Last Vital Signs Temp 36.3 C 12/21/18 07:26 Pulse 99 12/21/18 07:26 Resp 16 12/21/18 07:26 BP 132/75 12/21/18 07:26 Pulse Ox 98 12/21/18 07:26 Weight - Most Recent: 120.656 kg I&O - Last 24 Hours: Intake & Output 12/20/18 12/21/18 12/21/18 22:59 06:59 14:59 Output Total 200 Balance -200 Lab Results - Last 24 Hours: Laboratory Results - last 24 hr 12/20/18 12/20/18 12/20/18 Range/Units 07:08 07:08 07:33 WBC (4.5-11.0) K/uL RBC (3.30-5.50) M/uL Hgb (12.0-15.0) g/dL Hct (36.0-48.0) % MCV (80-98) fL MCH (27-31) pg MCHC (32-36) % Plt Count (150-400) K/uL Neut % (Auto) (36-66) % Lymph % (Auto) (24-44) % [place] % (Auto) (2-6) % Eos % (Auto) (2-4) % Baso % (Auto) (0-1) % Urine Color Yellow Urine Appearance Cloudy Urine pH 6.0 (4.5-8.0) Ur Specific [place] 1.015 (1.008-1.030) Urine Protein Trace (NEGATIVE) mg/dL Urine Glucose (UA) Normal (NEGATIVE) mg/dL Urine Ketones Negative (NEGATIVE) mg/dL Urine Occult Blood Moderate (NEGATIVE) Urine Nitrite Negative (NEGATIVE) Urine Bilirubin Negative (NEGATIVE) Urine Urobilinogen Normal (NORMAL) mg/dL Ur Leukocyte Esterase Large (NEGATIVE) Urine RBC 0-5 (0-5) Urine WBC Packed H (0-5) Ur Epithelial Cells Many Amorphous Sediment Not seen Urine Bacteria Moderate Urine Mucus Few Urine Opiates Screen Negative (NEGATIVE) Ur Oxycodone Screen Negative (NEGATIVE) Urine Methadone Screen Negative (NEGATIVE) Ur Propoxyphene Screen Negative (NEGATIVE) Ur Barbiturates Screen Negative (NEGATIVE) Ur Tricyclics Screen Negative (NEGATIVE) Ur Phencyclidine Scrn Negative (NEGATIVE) Ur Amphetamine Screen Negative (NEGATIVE) U Methamphetamines Scrn Negative (NEGATIVE) Urine MDMA Screen Negative (NEGATIVE) U Benzodiazepines Scrn Negative (NEGATIVE) U Cocaine Metab Screen Negative (NEGATIVE) U Marijuana (THC) Screen Negative (NEGATIVE) Blood Type A POSITIVE Gel Antibody Screen Negative 12/21/18 Range/Units 05:05 WBC 10.5 (4.5-11.0) K/uL RBC 3.32 (3.30-5.50) M/uL Hgb 8.6 L (12.0-15.0) g/dL Hct 27.7 L (36.0-48.0) % MCV 83 (80-98) fL MCH 26 L (27-31) pg MCHC 31 L (32-36) % Plt Count 316 (150-400) K/uL Neut % (Auto) 76 H (36-66) % Lymph % (Auto) 15 L (24-44) % [place] % (Auto) 8 H (2-6) % Eos % (Auto) 2 (2-4) % Baso % (Auto) 0 (0-1) % Urine Color Urine Appearance Urine pH (4.5-8.0) Ur Specific [place] (1.008-1.030) Urine Protein (NEGATIVE) mg/dL Urine Glucose (UA) (NEGATIVE) mg/dL Urine Ketones (NEGATIVE) mg/dL Urine Occult Blood (NEGATIVE) Urine Nitrite (NEGATIVE) Urine Bilirubin (NEGATIVE) Urine Urobilinogen (NORMAL) mg/dL Ur Leukocyte Esterase (NEGATIVE) Urine RBC (0-5) Urine WBC (0-5) Ur Epithelial Cells Amorphous Sediment Urine Bacteria Urine Mucus Urine Opiates Screen (NEGATIVE) Ur Oxycodone Screen (NEGATIVE) Urine Methadone Screen (NEGATIVE) Ur Propoxyphene Screen (NEGATIVE) Ur Barbiturates Screen (NEGATIVE) Ur Tricyclics Screen (NEGATIVE) Ur Phencyclidine Scrn (NEGATIVE) Ur Amphetamine Screen (NEGATIVE) U Methamphetamines Scrn (NEGATIVE) Urine MDMA Screen (NEGATIVE) U Benzodiazepines Scrn (NEGATIVE) U Cocaine Metab Screen (NEGATIVE) U Marijuana (THC) Screen (NEGATIVE) Blood Type Gel Antibody Screen Med Orders - Current: Current Medications Acetaminophen (Tylenol) 650 mg PO Q4H PRN PRN Reason: Pain (Mild 1-3) and fever Acetaminophen (Tylenol Bulk Bottle) 325 - 650 mg PO Q4H PRN PRN Reason: Pain Benzocaine (Bjcl-M-Mwnuqjv 20% [place]) 0 gm TOP Q4H PRN PRN Reason: Perineal Comfort Measure Docusate Sodium (Colace) 200 mg PO BID PRN PRN Reason: Constipation Emollient Ointment (Lansinoh Hpa) 0 gm TOP ASDIRECTED PRN PRN Reason: Sore Nipples Enoxaparin Sodium (Lovenox) 40 mg SUBCUT DAILY JOSE RAMON Stop: 01/31/19 23:59 Ferrous Sulfate (Ferrous Sulfate) 325 mg PO BIDMEALS JOSE RAMON Oxytocin/Sodium Chloride (Pitocin In Ns 20 Units/1,000 Ml) 20 unit in 1,000 mls @ 6 mls/hr IV TITRATE JOSE RAMON; Protocol Last Titration: 12/20/18 14:09 Dose: 13 munits/min, 39 mls/hr Lactated Ringer's (Ringers, Lactated) 1,000 mls @ 0 mls/hr IV ASDIRECTED JOSE RAMON Last Admin: 12/20/18 13:27 Dose: 100 mls/hr Ibuprofen (Motrin Bulk Bottle) 600 mg PO Q6H PRN PRN Reason: Pain Ondansetron HCl (Zofran) 4 mg IV Q4H PRN PRN Reason: Nausea/Vomiting Sodium Chloride (Saline Flush) 10 ml FLUSH ASDIRECTED PRN PRN Reason: Keep Vein Open Witch Marcelle (Tucks) 1 pad TOP ASDIRECTED PRN PRN Reason: Hemorrhoids Discontinued Medications Ephedrine Sulfate (Ephedrine Sulfate) Confirm Administered Dose 50 mg .ROUTE .STK-MED ONE Stop: 12/20/18 12:38 Last Admin: 12/20/18 14:50 Dose: Not Given Lactated Ringer's (Ringers, Lactated) 1,000 mls @ 999 mls/hr IV ONETIME ONE Stop: 12/20/18 08:28 Last Admin: 12/20/18 14:50 Dose: Not Given Cefazolin Sodium/Dextrose 2 gm (/ Premix) 50 mls @ 100 mls/hr IV ONETIME ONE Stop: 12/20/18 12:44 Last Admin: 12/20/18 12:23 Dose: 100 mls/hr Ropivacaine (Naropin 0.2%) Confirm Administered Dose 100 mls @ as directed .ROUTE .STK-MED ONE Stop: 12/20/18 12:33 Oxytocin/Sodium Chloride (Pitocin In Ns 20 Units/1,000 Ml) 20 unit in 1,000 mls @ 2,997 mls/hr IV ONETIME ONE; Protocol Stop: 12/20/18 15:29 Last Admin: 12/20/18 18:14 Dose: Not Given - Interaction Disposition, : [place] at Bedside Infant Interaction: Holding Feeding: Bottle Fed Infant Support Person: Significant Other - Recovery Exam Fundal Tone: Firms with Massage Fundal Level: 2 Fingerbreadths Below Umbilicus Fundal Placement: Midline Lochia Amount: Moderate Lochia Color: Rubra/Red Urinary Elimination: Voided - Exam General: Alert, Oriented HEENT: Pupils Equal Neck: Supple Lungs: Clear to Auscultation, Normal Respiratory Effort Cardiovascular: Regular Rate, Regular Rhythm GI/Abdominal Exam: Normal Bowel Sounds, Soft, Non-Tender, No Organomegaly, No Distention, No Abnormal Bruit, No Mass, Pelvis Stable Extremities: Normal Inspection, Normal Range of Motion, Non-Tender, No Pedal Edema, Normal Capillary Refill Skin: Warm, Dry, Intact Neurological: No New Focal Deficit Psy/Mental Status: Alert, Normal Affect, Normal Mood - Problem List & Annotations (1) Encounter for induction of labor SNOMED Code(s): 696006676 Code(s): Z34.90 - ENCNTR FOR SUPRVSN OF NORMAL , UNSP, UNSP TRIMESTER Status: Acute Current Visit: Yes (2) High-risk in third trimester SNOMED Code(s): 10529202, 79412261 Code(s): O09.93 - SUPERVISION OF HIGH RISK , UNSP, THIRD TRIMESTER Status: Acute Priority: High Current Visit: Yes (3) SNOMED Code(s): 79792895 Code(s): Z34.90 - ENCNTR FOR SUPRVSN OF NORMAL , UNSP, UNSP TRIMESTER Status: Acute Priority: High Current Visit: Yes Qualifiers: Weeks of gestation: 39 weeks Qualified Code(s): Z3A.39 - 39 weeks gestation of (4) History of stroke SNOMED Code(s): 957726647 Code(s): Z86.73 - PRSNL HX OF TIA (TIA), AND CEREB INFRC W/O RESID DEFICITS Status: Acute Priority: High Current Visit: Yes (5) Anemia affecting in third trimester SNOMED Code(s): 66988370, 23509888 Code(s): O99.013 - ANEMIA COMPLICATING , THIRD TRIMESTER Status: Acute Current Visit: Yes (6) Maternal hepatitis B surface antigen positive, currently SNOMED Code(s): 049114917 Code(s): O98.419 - VIRAL HEPATITIS COMPLICATING , UNSP TRIMESTER; B18.1 - CHRONIC VIRAL HEPATITIS B WITHOUT DELTA-AGENT Status: Acute Current Visit: No (7) Normal vaginal delivery SNOMED Code(s): 92779129 Code(s): O80 - ENCOUNTER FOR FULL-TERM UNCOMPLICATED DELIVERY Status: Acute Current Visit: Yes (8) Obesity affecting in third trimester SNOMED Code(s): 343260703351, 506864021068 Code(s): O99.213 - OBESITY COMPLICATING , THIRD TRIMESTER Status: Acute Current Visit: Yes (9) (infant) SNOMED Code(s): 491756555 Code(s): Z78.9 - OTHER SPECIFIED HEALTH STATUS Status: Acute Current Visit: Yes - Problem List Review Problem List Initiated/Reviewed/Updated: Yes - My Orders Last 24 Hours: My Active Orders 12/20/18 07:28 Patient Status [ADT] Routine Notify Provider [RC] PRN Epidural Catheter Management [OM.PC] Urgent Saline Lock Insert [OM.PC] Routine Resuscitation Status Routine 12/20/18 07:30 Insert Urinary Catheter [OM.PC] ASDIRECTED 12/20/18 07:33 Notify Provider Vital Signs [RC] PRN Up ad Araseli [RC] ASDIRECTED Acetaminophen [Tylenol] 650 mg PO Q4H PRN Ondansetron [Zofran] 4 mg IV Q4H PRN Sodium Chloride 0.9% [Saline Flush] 10 ml FLUSH ASDIRECTED PRN DVT/VTE Prophylaxis Reflex [OM.PC] Routine 12/20/18 07:45 Antiembolic Devices [RC] .Routine 12/20/18 08:00 Oxytocin/Normal Saline [Pitocin in NS 20 Units/1,000 ML] 20 unit in 1,000 ml IV TITRATE 12/20/18 08:15 Lactated Ringers [Ringers, Lactated] 1,000 ml IV ASDIRECTED 12/20/18 12:15 Dietary Supplements [RC] BIDMEALS 12/20/18 15:09 Patient Status [ADT] Routine Vital Signs [RC] Q4H Consult to Home Health [CONS] Routine Acetaminophen [Tylenol Bulk Bottle] 325 - 650 mg PO Q4H PRN Benzocaine [Jgkh-H-Xyznnas 20% [place]] See Dose Instructions TOP Q4H PRN Ibuprofen [Motrin Bulk Bottle] 600 mg PO Q6H PRN Lanolin [Lansinoh HPA] 0 gm TOP ASDIRECTED PRN Witch Marcelle [Tucks] 1 pad TOP ASDIRECTED PRN Assess Uterine Involution [WOMSER] Per Unit Routine 12/20/18 15:11 Ice Therapy [OM.PC] Per Unit Routine Perineal Care [OM.PC] Per Unit Routine 12/20/18 Breakfast Regular Diet [DIET] 12/21/18 07:50 Docusate Sodium [Colace] 200 mg PO BID PRN 12/21/18 07:51 JAYDA Hose [Antiembolic Hose] [OM.PC] Routine 12/21/18 08:00 Ferrous Sulfate 325 mg PO BIDMEALS 12/21/18 09:00 Enoxaparin [Lovenox] 40 mg SUBCUT DAILY - Assessment Assessment:: 12/20/2018 28 yo G8 now P4 delivered a viable male without complications Hep C positive, RNA negative Anemia in History of stroke 12/21/2018 without complications day one occasionally but mostly bottlefeeding Hep C positive, RNA negative Anemia in , starting iron-hgb today 8.6 History of stroke Voiding and passing gas - Plan Plan:: 12/20/2018 28 yo here at 39 0/7 gestational weeks for a medical induction of labor. She had a consult with [facility] and they recommended induction of labor at 39 0 /7 weeks gestation if no labor by then. History of stroke High risk SVE-/-2 Bishops-8 Labs-A positive, Hep B neg, HIV neg, Hep C positive-RNA negative, RPR nonreactive, GBS negative, Hgb-9.6 Plan- Monitor for active labor Monitor FHTS Start pitocin per protocol Pain control per patient request Will type and screen with hgb-9.6 SCDs when in bed Plan and anticipate a vaginal delivery 12/20/2018 Routine cares Encourage and support Encourage ambulation and SCD wearing when in bed Plan discharge at 24-48 hours of age 12/21/2018 Continue routine cares Continue to encourage and support /bottlefeeding Continue to encourage ambulation and SCD wearing when in bed and lovenox start today Start iron today Plan discharge at 24-48 hours of age
[2018-12-21] MEDS: Enoxaparin 40 MG/0.4 ML Syringe SUBCUT SCH (09:13)
[2018-12-21] MEDS: Ferrous Sulfate 325 MG Tab PO SCH ×2 (09:13→18:23)
--- NOTE | 2018-12-22 08:05 | PCM.PNPP ---
- General Info Date of Service: 12/22/18 (discharge) Admission Dx/Problem (Free Text): Patient Status Order with Admit Dx/Problem 12/20/18 07:28 Patient Status [ADT] Routine Admission Diagnosis/Problem Admission Diagnosis/Problem Functional Status: Reports: Pain Controlled - Review of Systems General: Reports: No Symptoms HEENT: Reports: No Symptoms Pulmonary: Reports: No Symptoms Cardiovascular: Reports: No Symptoms Gastrointestinal: Reports: No Symptoms Genitourinary: Reports: No Symptoms Musculoskeletal: Reports: No Symptoms Skin: Reports: No Symptoms Neurological: Reports: No Symptoms Psychiatric: Reports: No Symptoms - General Info Date of Service: 12/22/18 - Patient Data Vital Signs - Most Recent: Last Vital Signs Temp 97.9 F 12/22/18 04:24 Pulse 102 H 12/22/18 04:24 Resp 16 12/22/18 04:24 BP 137/71 12/22/18 04:24 Pulse Ox 99 12/22/18 04:24 Weight - Most Recent: 266 lb 0.015 oz Micro Results - Last 24 Hours: Microbiology 12/20/18 02:09 Urine Culture - Preliminary Urine, Bladder MIXED POSITIVE CORNEL DAY 1 Med Orders - Current: Current Medications Acetaminophen (Tylenol) 650 mg PO Q4H PRN PRN Reason: Pain (Mild 1-3) and fever Acetaminophen (Tylenol Bulk Bottle) 325 - 650 mg PO Q4H PRN PRN Reason: Pain Benzocaine (Ljko-D-Poreduf 20% [place]) 0 gm TOP Q4H PRN PRN Reason: Perineal Comfort Measure Docusate Sodium (Colace) 200 mg PO BID PRN PRN Reason: Constipation Last Admin: 12/21/18 09:13 Dose: 200 mg Emollient Ointment (Lansinoh Hpa) 0 gm TOP ASDIRECTED PRN PRN Reason: Sore Nipples Enoxaparin Sodium (Lovenox) 40 mg SUBCUT DAILY JOSE RAMON Stop: 01/31/19 23:59 Last Admin: 12/21/18 09:13 Dose: 40 mg Ferrous Sulfate (Ferrous Sulfate) 325 mg PO BIDMEALS JOSE RAMON Last Admin: 12/21/18 18:23 Dose: 325 mg Oxytocin/Sodium Chloride (Pitocin In Ns 20 Units/1,000 Ml) 20 unit in 1,000 mls @ 6 mls/hr IV TITRATE JOSE RAMON; Protocol Last Titration: 12/20/18 14:09 Dose: 13 munits/min, 39 mls/hr Lactated Ringer's (Ringers, Lactated) 1,000 mls @ 0 mls/hr IV ASDIRECTED JOSE RAMON Last Admin: 12/20/18 13:27 Dose: 100 mls/hr Ibuprofen (Motrin Bulk Bottle) 600 mg PO Q6H PRN PRN Reason: Pain Ondansetron HCl (Zofran) 4 mg IV Q4H PRN PRN Reason: Nausea/Vomiting Sodium Chloride (Saline Flush) 10 ml FLUSH ASDIRECTED PRN PRN Reason: Keep Vein Open Witch Marcelle (Tucks) 1 pad TOP ASDIRECTED PRN PRN Reason: Hemorrhoids Discontinued Medications Ephedrine Sulfate (Ephedrine Sulfate) Confirm Administered Dose 50 mg .ROUTE .STK-MED ONE Stop: 12/20/18 12:38 Last Admin: 12/20/18 14:50 Dose: Not Given Lactated Ringer's (Ringers, Lactated) 1,000 mls @ 999 mls/hr IV ONETIME ONE Stop: 12/20/18 08:28 Last Admin: 12/20/18 14:50 Dose: Not Given Cefazolin Sodium/Dextrose 2 gm (/ Premix) 50 mls @ 100 mls/hr IV ONETIME ONE Stop: 12/20/18 12:44 Last Admin: 12/20/18 12:23 Dose: 100 mls/hr Ropivacaine (Naropin 0.2%) Confirm Administered Dose 100 mls @ as directed .ROUTE .STK-MED ONE Stop: 12/20/18 12:33 Oxytocin/Sodium Chloride (Pitocin In Ns 20 Units/1,000 Ml) 20 unit in 1,000 mls @ 2,997 mls/hr IV ONETIME ONE; Protocol Stop: 12/20/18 15:29 Last Admin: 12/20/18 18:14 Dose: Not Given - Interaction Infant Disposition, : [place] at Bedside Interaction: Holding Infant Infant Feeding: Bottle Fed Support Person: Significant Other - Recovery Exam Fundal Tone: Firms with Massage Fundal Level: 2 Fingerbreadths Below Umbilicus Fundal Placement: Midline Lochia Amount: Small Lochia Color: Serosa/Harvest Perineum Description: Intact, Minimal Bruising/Swelling Episiotomy/Laceration: None Bladder Status: Nonpalpable Urinary Elimination: Voided - Exam General: Alert, Oriented HEENT: Pupils Equal Neck: Supple Lungs: Clear to Auscultation, Normal Respiratory Effort Cardiovascular: Regular Rate, Regular Rhythm GI/Abdominal Exam: Normal Bowel Sounds, Soft, Non-Tender, Pelvis Stable Extremities: Normal Inspection, Normal Range of Motion, Non-Tender, No Pedal Edema, Normal Capillary Refill Skin: Warm, Dry, Intact Wound/Incisions: Healing Well Neurological: No New Focal Deficit Psy/Mental Status: Alert, Normal Affect, Normal Mood - Problem List & Annotations (1) Normal vaginal delivery SNOMED Code(s): 28839625 Code(s): O80 - ENCOUNTER FOR FULL-TERM UNCOMPLICATED DELIVERY Status: Acute Current Visit: Yes (2) Obesity affecting in third trimester SNOMED Code(s): 965993470605, 890684888116 Code(s): O99.213 - OBESITY COMPLICATING , THIRD TRIMESTER Status: Acute Current Visit: Yes (3) (infant) SNOMED Code(s): 040900617 Code(s): Z78.9 - OTHER SPECIFIED HEALTH STATUS Status: Acute Current Visit: Yes (4) Hepatitis C antibody positive in blood SNOMED Code(s): 075961319 Code(s): R76.8 - OTHER SPECIFIED ABNORMAL IMMUNOLOGICAL FINDINGS IN SERUM Status: Acute Current Visit: Yes (5) UTI in SNOMED Code(s): 268926629 Code(s): O23.40 - UNSP INFECTION OF URINARY TRACT IN , UNSP TRIMESTER Status: Acute Current Visit: Yes (6) Anemia affecting in third trimester SNOMED Code(s): 17033884, 01036277 Code(s): O99.013 - ANEMIA COMPLICATING , THIRD TRIMESTER Status: Acute Current Visit: Yes (7) Encounter for induction of labor SNOMED Code(s): 963037941 Code(s): Z34.90 - ENCNTR FOR SUPRVSN OF NORMAL , UNSP, UNSP TRIMESTER Status: Acute Current Visit: Yes (8) High-risk in third trimester SNOMED Code(s): 14446200, 86420838 Code(s): O09.93 - SUPERVISION OF HIGH RISK , UNSP, THIRD TRIMESTER Status: Acute Priority: High Current Visit: Yes (9) SNOMED Code(s): 45246543 Code(s): Z34.90 - ENCNTR FOR SUPRVSN OF NORMAL , UNSP, UNSP TRIMESTER Status: Acute Priority: High Current Visit: Yes Qualifiers: Weeks of gestation: 39 weeks Qualified Code(s): Z3A.39 - 39 weeks gestation of (10) History of stroke SNOMED Code(s): 178916585 Code(s): Z86.73 - PRSNL HX OF TIA (TIA), AND CEREB INFRC W/O RESID DEFICITS Status: Acute Priority: High Current Visit: Yes (11) Intrahepatic cholestasis of SNOMED Code(s): 569176770 Code(s): O26.619 - LIVER AND BILIARY TRACT DISORD IN , UNSP TRIMESTER; K83.1 - OBSTRUCTION OF BILE DUCT Status: Acute Current Visit: No - Problem List Review Problem List Initiated/Reviewed/Updated: Yes - Assessment Assessment:: 12/20/2018 28 yo G8 now P4 delivered a viable male without complications Hep C positive, RNA negative Anemia in History of stroke 12/21/2018 without complications day one occasionally but mostly bottlefeeding Hep C positive, RNA negative Anemia in , starting iron-hgb today 8.6 History of stroke Voiding and passing gas 12/22/18 Doing well Mood happy Really not at this time, breast nontender history of stroke, anticoagulation started and will continue Hep c positive, Needs GI consult post voiding without problem Flow light, not mush cramping Anemia, on iron - Plan Plan:: 12/20/2018 28 yo here at 39 0/7 gestational weeks for a medical induction of labor. She had a consult with [facility] and they recommended induction of labor at 39 0 /7 weeks gestation if no labor by then. History of stroke High risk SVE-/-2 Bishops-8 Labs-A positive, Hep B neg, HIV neg, Hep C positive-RNA negative, RPR nonreactive, GBS negative, Hgb-9.6 Plan- Monitor for active labor Monitor FHTS Start pitocin per protocol Pain control per patient request Will type and screen with hgb-9.6 SCDs when in bed Plan and anticipate a vaginal delivery 12/20/2018 Routine cares Encourage and support Encourage ambulation and SCD wearing when in bed Plan discharge at 24-48 hours of age 12/21/2018 Continue routine cares Continue to encourage and support /bottlefeeding Continue to encourage ambulation and SCD wearing when in bed and lovenox start today Start iron today Plan discharge at 24-48 hours of age 12/22/18 Home today will return for Lovenox continue iron supplement reviewed discharge instructions
[2018-12-22] MEDS: Enoxaparin 40 MG/0.4 ML Syringe SUBCUT SCH (09:26)
[2018-12-22] MEDS: Ferrous Sulfate 325 MG Tab PO SCH (09:27)
== END 2018-12-22 10:50 | disposition home or self-care (01) | DRG 806 ==
LOC: JP.OB 06:41 → OBSVTOIN 14:54 → JP.OB 14:54 → JP.MS 18:34
PROVIDERS: ADMIT Advanced Practice Midwife; ATTEND Advanced Practice Midwife
PROC: 10E0XZZ Delivery of Products of Conception, External Approach (ICD-10-PCS; principal; 2018-12-20)
PROC: 3E0P7VZ Introduction of Hormone into Female Reproductive, Via Natural or Artificial Opening (ICD-10-PCS; 2018-12-20)
DX: O99.02 Anemia complicating childbirth (principal); O98.42 Viral hepatitis complicating childbirth; Z37.0 Single live birth; O99.354 Diseases of the nervous system complicating childbirth; B19.20 Unspecified viral hepatitis C without hepatic coma; O99.214 Obesity complicating childbirth; O66.8 Other specified obstructed labor; Z3A.39 39 weeks gestation of pregnancy; F60.3 Borderline personality disorder; F32.9 Major depressive disorder, single episode, unspecified; F41.9 Anxiety disorder, unspecified; Z86.73 Personal history of transient ischemic attack (TIA), and cerebral infarction without residual deficits
CPT/HCPCS: 36415; 51702; 59409; 80305-QW; 81001; 85025; 85027; 86850; 86900; 86901; 87086; A9270-GY; J0690; J1650; J2590; J2795; J7120

== ENCOUNTER 2019-03-21 01:06 | Emergency (ER) | payer MEDICAID ==
[2019-03-21] MEDS ORDERED: Meclizine 25 MG Tab PO ONE (01:57)
--- NOTE | 2019-03-21 02:00 | EDM.PDOC ---
ED HPI GENERAL MEDICAL PROBLEM - General Chief Complaint: ENT Problem Stated Complaint: RINGING IN EARS Time Seen by Provider: 03/21/19 01:51 Source of Information: Reports: Patient, Family, RN Notes Reviewed History Limitations: Reports: No Limitations - History of Present Illness INITIAL COMMENTS - FREE TEXT/NARRATIVE: 28-year-old female presents emergency department today complaint of dizziness, she states she's had this on and off for the last 2 days this evening when she woke up she felt like she had difficulty walking out of the symptoms now have resolved. no nausea no shortness of breath chest pain denies pain Pain Score (Numeric/FACES): 0 - Related Data Allergies Allergy/AdvReac Type Severity Reaction Status Date / Time No Known Allergies Allergy Verified 12/25/18 10:11 Home Meds: Home Meds Aspirin 81 mg PO DAILY 01/23/18 [History] Pnv No.95/Ferrous Fum/Folic AC [ Caplet] 1 tab PO DAILY 12/25/18 [ History] Past Medical History HEENT History: Reports: Allergic Rhinitis, Impaired Vision Cardiovascular History: Reports: Hypertension Respiratory History: Reports: Asthma, Sleep Apnea Gastrointestinal History: Reports: GERD, Other (See Below) Other Gastrointestinal History: 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 Positive Hep C screen- not active Hep C Genitourinary History: Reports: UTI, Recurrent OUTREACH CONSULTANT History: Reports: Neurological History: Reports: CVA, Other (See Below) Other Neuro History: stroke 2015 Psychiatric History: Reports: Anxiety, Depression, Psych Hospitalization(s), Suicide Attempt, Other (See Below) Other Psychiatric History: borderline personality disorder Endocrine/Metabolic History: Reports: Obesity/BMI 30+ Hematologic History: Reports: Anticoagulation Therapy Dermatologic History: Reports: Eczema, Psoriasis - Infectious Disease History Infectious Disease History: Reports: Chicken Pox, Hepatitis C - Past Surgical History Female Surgical History: Reports: Tubal Ligation Social & Family History - Tobacco Use Smoking Status *Q: Never Smoker - Caffeine Use Caffeine Use: Reports: Coffee Other Caffeine Use: not very frequently - Recreational Drug Use Recreational Drug Use: No - Living Situation & Occupation Living situation: Reports: Single (has 3 children age 10 yr, 9 yr, and 2 yr. The two older children live with thier Paternal Grandparents. 2 yr lives with Dasher), with Family Occupation: Employed ED ROS GENERAL - Review of Systems Review Of Systems: See Below Constitutional: Reports: No Symptoms HEENT: Reports: No Symptoms Respiratory: Reports: No Symptoms Cardiovascular: Reports: No Symptoms GI/Abdominal: Reports: No Symptoms Neurological: Reports: Dizziness ED EXAM, GENERAL - Physical Exam Exam: See Below Exam Limited By: No Limitations General Appearance: Alert, WD/WN, No Apparent Distress Eye Exam: Bilateral Eye: EOMI, PERRL Ears: Normal External Exam, Normal Canal, Hearing Grossly Normal, Normal TMs Nose: Normal Inspection, Normal Mucosa, No Blood Throat/Mouth: Normal Inspection, Normal Lips, Normal Teeth, Normal Gums, Normal Oropharynx, Normal Voice, No Airway Compromise Head: Atraumatic, Normocephalic Neck: Normal Inspection, Supple, Non-Tender, Full Range of Motion Respiratory/Chest: No Respiratory Distress, Lungs Clear, Normal Breath Sounds, No Accessory Muscle Use Cardiovascular: Regular Rate, Rhythm, No Murmur Course - Vital Signs Last Recorded V/S: Last Vital Signs Temp 98.0 F 03/21/19 01:33 Pulse 93 03/21/19 01:33 Resp 16 03/21/19 01:33 BP 123/71 03/21/19 01:33 Pulse Ox 98 03/21/19 01:33 Orthostatic Blood Pressure [ 122/73 Standing] Orthostatic Blood Pressure [ 120/73 Sitting] Orthostatic Blood Pressure [ 120/62 Supine] - Orders/Labs/Meds Meds: Medications Discontinued Medications Generic Name Dose Route Start Last Admin Trade Name Abebe PRN Reason Stop Dose Admin Meclizine HCl 25 mg 03/21/19 01:57 03/21/19 02:10 Antivert PO 03/21/19 01:58 25 mg ONETIME ONE Administration Departure - Departure Time of Disposition: 02:37 Disposition: Home, Self-Care 01 Condition: Fair Clinical Impression: Dizzy - Discharge Information Referrals: PCP,None [Primary Care Provider] - Forms: ED Department Discharge Additional Instructions: Continue to use the meclizine as needed for dizzy symptoms, Please followup with your primary care provider in 3-5 days if not better, please call return to the emergency department with worsening of symptoms. - Assessment/Plan Plan: Assessment Acuity = acute Site and laterality = dizziness Etiology = unclear etiology] Manifestations = none Location of injury = Home Lab values = none Plan Good improvement with meclizine prescription for for meclizine 25 mg by mouth 3 times a day when necessary total #100 follow-up primary care in 3-5 days if not better This note was dictated using [employer] voice recognition software please call with any questions on syntax or grammar.
== END 2019-03-21 02:52 | disposition home or self-care (01) ==
LOC: JP.ED 01:06
DX: R42 Dizziness and giddiness (principal); I10 Essential (primary) hypertension; Z79.899 Other long term (current) drug therapy; Z79.82 Long term (current) use of aspirin; Z86.73 Personal history of transient ischemic attack (TIA), and cerebral infarction without residual deficits; Z79.01 Long term (current) use of anticoagulants
CPT/HCPCS: 99282; A9270

== ENCOUNTER 2019-11-10 13:00 | Emergency (ER) | payer MEDICAID ==
--- NOTE | 2019-11-10 13:35 | EDM.PDOC ---
ED HPI GENERAL MEDICAL PROBLEM - General Chief Complaint: Gastrointestinal Problem Stated Complaint: PERSISTENT DIARRHEA Time Seen by Provider: 11/10/19 13:23 Source of Information: Reports: Patient History Limitations: Reports: No Limitations - History of Present Illness INITIAL COMMENTS - FREE TEXT/NARRATIVE: Patient presents because of multiple diarrheal episodes over the last 24 hours along with intense cramping pain associated with it. Her [id number] son had some episodes of vomiting the day prior to her developing symptoms. Her significant other does not have similar symptoms. She began to feel abdominal pain last night along with nausea and vomited once. She's had no vomiting since that time but slept for almost 12 hours overnight. On awakening today, she had diarrheal episodes every 20 or 30 minutes. She's taken some Pepto-Bismol so there was some black character to otherwise green diarrheal stools. They were not bloody. No fever or chills. As mentioned, no nausea or vomiting at this time. No other recent changes in health. She tried a number of OTC products for the diarrhea since it began but has not noticed any improvement. Duration: Day(s): (One) Location: Reports: Abdomen Quality: Reports: Ache Severity: Mild Improves with: Reports: None Worsens with: Reports: Eating Abdominal Pain Score (Numeric/FACES): 2 - Related Data Allergies Allergy/AdvReac Type Severity Reaction Status Date / Time No Known Allergies Allergy Verified 11/10/19 13:13 Home Meds: Home Meds NK [No Known Home Meds] 11/10/19 [History] Past Medical History - Past Health History Medical/Surgical History: Denies Medical/Surgical History HEENT History: Reports: Allergic Rhinitis, Impaired Vision Cardiovascular History: Reports: Hypertension Respiratory History: Reports: Asthma, Sleep Apnea Gastrointestinal History: Reports: GERD, Other (See Below) Other Gastrointestinal History: 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 Positive Hep C screen- not active Hep C Genitourinary History: Reports: UTI, Recurrent SC[employer] INST[employer]ER History: Reports: Neurological History: Reports: CVA, Other (See Below) Other Neuro History: stroke 2016 Psychiatric History: Reports: Anxiety, Depression, Psych Hospitalization(s), Suicide Attempt, Other (See Below) Other Psychiatric History: borderline personality disorder Endocrine/Metabolic History: Reports: Obesity/BMI 30+ Hematologic History: Reports: Anticoagulation Therapy Dermatologic History: Reports: Eczema, Psoriasis - Infectious Disease History Infectious Disease History: Reports: Chicken Pox - Past Surgical History Female Surgical History: Reports: Tubal Ligation Social & Family History - Tobacco Use Smoking Status *Q: Never Smoker Second Hand Smoke Exposure: No - Caffeine Use Caffeine Use: Reports: Coffee Other Caffeine Use: not very frequently - Recreational Drug Use Recreational Drug Use: No - Living Situation & Occupation Living situation: Reports: Single (has 3 children age 10 yr, 9 yr, and 2 yr. The two older children live with thier Paternal Grandparents. 2 yr lives with [employer].), with Family Occupation: Employed ED ROS GENERAL - Review of Systems Review Of Systems: Comprehensive ROS is negative, except as noted in HPI. ED EXAM, GI/ABD - Physical Exam Exam: See Below Exam Limited By: No Limitations General Appearance: Alert, Mild Distress Respiratory/Chest: No Respiratory Distress Cardiovascular: Regular Rate, Rhythm GI/Abdominal Exam: Soft, No Distention, Tender (Diffuse tenderness), Abnormal Bowel Sounds (Frequent bowel sounds). No: Distended, Guarding, Rigid, Rebound Course - Vital Signs Last Recorded V/S: Last Vital Signs Temp 36.0 C L 11/10/19 13:18 Pulse 82 11/10/19 13:18 Resp 16 11/10/19 13:18 BP 126/74 11/10/19 13:18 Pulse Ox 98 11/10/19 13:18 - Re-Assessments/Exams Free Text/Narrative Re-Assessment/Exam: 11/10/19 13:50 Based on history and exam, there are no alarming gastrointestinal findings today. I recommend avoiding dairy products until better although yogurt is fine. She should take in fluids regularly especially if the diarrhea is more frequent area did I do recommend small amounts of food regularly to improve her got comfort. Tylenol or ibuprofen as needed for pain is reasonable. It is difficult to know how long this will last but we discussed that almost all diarrheal illnesses in [place] are virus related. Recheck in clinic if not improved in 7-10 days although some diarrheal illnesses may last up to 3 weeks. Departure - Departure Time of Disposition: 13:52 Disposition: Home, Self-Care 01 Condition: Good Clinical Impression: Diarrhea - Discharge Information *PRESCRIPTION DRUG MONITORING PROGRAM REVIEWED*: Not Applicable *COPY OF PRESCRIPTION DRUG MONITORING REPORT IN PATIENT AMELIA: Not Applicable Instructions: Viral Gastroenteritis, Adult, Rsym-sh-Cuky Forms: ED Department Discharge Additional Instructions: Avoid dairy products except yogurt until feeling better. Avoid a high density/ high-calorie foods until better. Adequate liquid intake will be important especially if you're having more diarrheal stools. As long as diarrhea is not bloody or persistently black, I would expect things to resolve on their own. Tylenol or ibuprofen is reasonable for pain. Recheck in clinic if not improved in 7-10 days although some virus diarrhea illnesses may last up to 3 weeks. Sepsis Event Note - Evaluation Sepsis Screening Result: No Definite Risk - Focused Exam Vital Signs: Vital Signs Temp Pulse Resp BP Pulse Ox 11/10/19 13:18 36.0 C L 82 16 126/74 98 Date Exam was Performed: 11/10/19 Time Exam was Performed: 17:26
== END 2019-11-10 14:00 | disposition home or self-care (01) ==
LOC: JP.ED 13:00
DX: R19.7 Diarrhea, unspecified (principal); R11.10 Vomiting, unspecified; I10 Essential (primary) hypertension; J45.909 Unspecified asthma, uncomplicated; E66.9 Obesity, unspecified; Z86.73 Personal history of transient ischemic attack (TIA), and cerebral infarction without residual deficits; Z68.38 Body mass index [BMI] 38.0-38.9, adult
CPT/HCPCS: 99283

== ENCOUNTER 2022-07-17 19:27 | Emergency (ER) | payer OTHER, MEDICAID ==
[2022-07-17] MEDS ORDERED: cefTRIAXone 500 MG, Lidocaine 1% 1 ML IM ONE ×2 (21:03)
== END 2022-07-17 21:33 | disposition home or self-care (01) ==
LOC: JP.ED 19:27
DX: T76.21XA Adult sexual abuse, suspected, initial encounter (principal); I10 Essential (primary) hypertension
CPT/HCPCS: 96372; 99284; J0696

== ENCOUNTER 2023-08-04 14:23 | Emergency (ER) | payer MEDICAID | END 2023-08-04 15:58 | disposition home or self-care (01) | LOC: JP.ED 14:23 | DX: F41.0 Panic disorder [episodic paroxysmal anxiety] (principal); J45.909 Unspecified asthma, uncomplicated; I10 Essential (primary) hypertension; Z86.73 Personal history of transient ischemic attack (TIA), and cerebral infarction without residual deficits; E66.9 Obesity, unspecified; Z68.32 Body mass index [BMI] 32.0-32.9, adult; Z86.16 Personal history of COVID-19; Z79.01 Long term (current) use of anticoagulants | CPT/HCPCS: 99284 ==

== ENCOUNTER 2024-12-06 01:52 | Emergency (ER) | payer MEDICAID ==
[2024-12-06 03:08] LABS: BASOPHILS PERCENT AUTO 0.3 % (0.1-1.3); EOSINOPHILS PERCENT AUTO 1.4 % (0.0-5.4); HEMOGLOBIN 13.4 g/dL (11.2-15.5); IMMATURE GRAN ABSOLUTE AUTO 0.03 K/uL (0.00-0.23); IMMATURE GRAN PERCENT AUTO 0.4 % (0.0-0.7); LYMPHOCYTES ABSOLUTE AUTO 1.49 K/uL (0.8-3.3); LYMPHOCYTES PERCENT AUTO 21.2 % (11.4-47.7); MEAN CORPUSCULAR HEMOGLOBIN 30.4 pg (31.6-35.5); MEAN CORPUSCULAR HGB CONC 33.5 g/dL (31.6-35.5); MEAN CORPUSCULAR VOLUME 90.7 fL (81.4-99.0); MONOCYTES PERCENT AUTO 7.1 % (3.3-12.6); NEUTROPHILS ABSOLUTE AUTO 4.89 K/uL (1.0-7.6); NEUTROPHILS PERCENT AUTO 69.6 % (40.0-78.1); PLATELET COUNT,PLT 283 K/uL (130-375); RED BLOOD CELL COUNT 4.41 M/uL (3.77-5.24)
[2024-12-06 03:10] LABS: BASOPHILS ABSOLUTE AUTO 0.02 K/uL (0.00-0.10)
[2024-12-06 03:31] LABS: ALANINE AMINOTRANSFERASE,ALT 10 U/L (12-78); ALBUMIN 3.8 g/dL (3.4-5.0); ALKALINE PHOSPHATASE 69 U/L (46-116); ASPARTATE AMNIOTRANSFERASE,AST 9 U/L (15-37); BILIRUBIN TOTAL 0.5 mg/dL (0.2-1.0); BLOOD UREA NITROGEN,BUN 10 mg/dL (7-18); C-REACTIVE PROTEIN 0.63 mg/dL (<0.50); CALCIUM 9.1 mg/dL (8.5-10.1); CARBON DIOXIDE,CO2 26 mmol/L (21-32); CHLORIDE,CL 106 mmol/L (100-108); CREATININE 0.8 mg/dL (0.6-1.0); EST CRCL DRUG DOSING (CG) 87.48 mL/min; ESTIMATED GFR 98 mL/min (>60); GLUCOSE RANDOM 101 mg/dL (74-106); POTASSIUM,K 3.5 mmol/L (3.6-5.2); PROTEIN TOTAL,TP 7.6 g/dL (6.4-8.2); SODIUM,NA 142 mmol/L (140-148)
[2024-12-06 03:33] LABS: ANION GAP 13.5 mmol/L (5.0-14.0)
[2024-12-06] MEDS: Iopamidol 612 MG/ML 100 ML Bottle IV SCH (04:13)
[2024-12-06] MEDS: Sodium Chloride 0.9% 10 ML Syringe FLUSH PRN (04:13)
[2024-12-06] MEDS: Sodium Chloride 0.9% 100 ML IV SCH (04:13)
== END 2024-12-06 05:03 | disposition home or self-care (01) ==
LOC: JP.ED 01:52
DX: L08.9 Local infection of the skin and subcutaneous tissue, unspecified (principal); I10 Essential (primary) hypertension; K21.9 Gastro-esophageal reflux disease without esophagitis; F17.210 Nicotine dependence, cigarettes, uncomplicated; Z86.73 Personal history of transient ischemic attack (TIA), and cerebral infarction without residual deficits
CPT/HCPCS: 36415; 74177; 80053; 84703; 85025; 86140; 87070; 87077; 87205; 99284; Q9967